=== PATIENT | male | born 1945 | race Caucasian/White ===

== ENCOUNTER 2017-07-19 19:34 | Inpatient (IN) | payer MEDICARE, OTHER ==
[~2017-07-19] VITALS: Ht 182.9 cm; Wt 150.0 kg
[~2017-07-19 19:34] MED LIST: CLIN1CAP6 PO; DIOV160T8 PO; GLIM1TAB PO; METF-324 PO
[2017-07-19 19:35] VITALS: BP 190/86; PULSE 100; RESP 16; TEMP 102.9; O2SAT 97
[2017-07-19] MEDS ORDERED: METF-382 PO (20:02)
[2017-07-19] MEDS ORDERED: GLIM1TAB PO (20:02)
[2017-07-19] MEDS ORDERED: VALS160T6 PO (20:02)
--- NOTE | 2017-07-19 20:18 | PD ---
HPI Chief Complaint: Skin Problem Time Seen by Provider: 20:17 Travel History International Travel<30 days: No Contact w/Intl Traveler<30days: No Traveled to known affect area: No History of Present Illness HPI 71-year-old male came to the emergency room with history of right leg redness after he noticed that he was cold and shaking all night last night. Patient says that he has had this in the past and was diagnosed with cellulitis. He is a diabetic. His right leg is swollen and red and warm. There is no severe pain in the leg. No history of cough or vomiting or diarrhea. Patient had a temperature of 102.5 in triage. He is currently awake and answering questions appropriately. He is here with his . He says his blood sugar has been running in 150s lately. He did not take anything for the fever at home. [facility] Past Medical History Narrative Medical List of his past medical, surgical, social and family history is reviewed from the nursing note. Arthritis: Yes (BILAT KNEES AND HANDS and feet) Asthma: No Autoimmune Disease: No Heart Rhythm Problems: No Cancer: No Cardiovascular Problems: Yes High Cholesterol: Yes Chest Pain: No Congestive Heart Failure: No COPD: No Cerebrovascular Accident: Yes Diabetes: Yes Patient Takes Glucophage: Yes Diminished Hearing: No Endocrine: No Genitourinary: Yes Headaches: Yes Hypertension: Yes (HTN) Immune Disorder: No Implanted Vascular Access Dvce: No Kidney Stones: Yes (STONES 2013) Musculoskeletal: Yes Neurologic: Yes Psychiatric: No Reproductive: No Respiratory: Yes Immunizations Current: Yes Migraines: No Seizures: No Sleep Apnea: Yes (CPAP/bipap) Thyroid Disease: No Tetanus Vaccination: > 5 Years Influenza Vaccination: No Social History Alcohol Use: No (occ) Tobacco Use: No Substance Use: No Allergies-Medications (Allergen,Severity, Reaction): Coded Allergies: morphine (Unverified Allergy, Mild, 01/20/17) Comments List of his allergies reviewed from the nursing note. Reported Meds & Prescriptions Reported Meds & Active Scripts Active Reported Metformin ER (Metformin HCl) 1,000 Mg Trent 1,000 Mg PO BID With evening meal Glimepiride 1 Mg Tab 1 Mg PO DAILYAC Take with breakfast or first main meal Narrative Medication List of his home medications reviewed from the nursing note. Review of Systems Except as stated in HPI: all other systems reviewed are Neg General / Constitutional: Positive: Fever, Chills Physical Exam Narrative GENERAL: Awake, alert, morbidly obese, moderate distress SKIN: Focused skin assessment warm/dry. Right leg lower third has redness on the anterior and medial aspect that is warm to touch. Patient does not have pain out of proportion in the area of the leg. The leg itself is swollen and tense. No crepitus. HEAD: Atraumatic. Normocephalic. EYES: Pupils equal and round. No scleral icterus. No injection or drainage. ENT: No nasal bleeding or discharge. Mucous membranes pink and moist. NECK: Trachea midline. No JVD. CARDIOVASCULAR: Regular rate and rhythm. No murmur appreciated. RESPIRATORY: No accessory muscle use. Clear to auscultation. Breath sounds equal bilaterally. GASTROINTESTINAL: Abdomen soft, non-tender, nondistended. Hepatic and splenic margins not palpable. MUSCULOSKELETAL: No obvious deformities. No clubbing. No cyanosis. No edema. Distal neurovascular is intact. NEUROLOGICAL: Awake and alert. No obvious cranial nerve deficits. Motor grossly within normal limits. Normal speech. PSYCHIATRIC: Appropriate mood and affect; insight and judgment normal. Data Data Last Documented VS Vital Signs Date Time Temp Pulse Resp B/P (MAP) Pulse Ox O2 Delivery O2 Flow Rate FiO2 07/19/17 19:55 (120) 07/19/17 19:35 102.9 100 16 97 Room Air Orders Orders Sepsis Workup Initiated (07/19/17 ) Complete Blood Count With Diff (07/19/17 20:20) Comprehensive Metabolic Panel (07/19/17 20:20) Prothrombin Time / Inr (Pt) (07/19/17 20:20) Lactic Acid Sepsis Protocol (07/19/17 20:20) Urinalysis - C+S If Indicated (07/19/17 20:20) Blood Culture (07/19/17 20:20) Chest, Single Ap (07/19/17 20:20) Blood Glucose (07/19/17 20:20) Ecg Monitoring (07/19/17 20:20) Iv Access Insert/Monitor (07/19/17 20:20) Oximetry (07/19/17 20:20) Oxygen Administration (07/19/17 20:20) Acetaminophen Supp (Tylenol Supp) (07/19/17 20:30) Sodium Chlor 0.9% 1000 Ml Inj (Ns 1000 M (07/19/17 20:30) Vancomycin Inj (Vancomycin Inj) (07/19/17 20:30) Us Leg Venous Doppler (07/19/17 ) Acetaminophen (Tylenol) (07/19/17 21:15) Piperacil-Tazo 4.5 Gm Premix (Zosyn 4.5 (07/19/17 21:45) Admit Order (Ed Use Only) (07/19/17 21:55) Labs Laboratory Tests Test 07/19/17 20:39 White Blood Count 21.8 TH/MM3 Red Blood Count 4.87 MIL/MM3 Hemoglobin 13.9 GM/DL Hematocrit 40.8 % Mean Corpuscular Volume 83.8 FL Mean Corpuscular Hemoglobin 28.5 PG Mean Corpuscular Hemoglobin Concent 34.0 % Red Cell Distribution Width 14.1 % Platelet Count 247 TH/MM3 Mean Platelet Volume 9.1 FL Neutrophils (%) (Auto) 90.5 % Lymphocytes (%) (Auto) 3.4 % Monocytes (%) (Auto) 5.6 % Eosinophils (%) (Auto) 0.1 % Basophils (%) (Auto) 0.4 % Neutrophils # (Auto) 19.7 TH/MM3 Lymphocytes # (Auto) 0.7 TH/MM3 Monocytes # (Auto) 1.2 TH/MM3 Eosinophils # (Auto) 0.0 TH/MM3 Basophils # (Auto) 0.1 TH/MM3 CBC Comment DIFF FINAL Differential Comment Prothrombin Time 10.7 SEC Prothromb Time International Ratio 1.1 RATIO Blood Urea Nitrogen 25 MG/DL Creatinine 1.49 MG/DL Random Glucose 135 MG/DL Total Protein 7.2 GM/DL Albumin 3.5 GM/DL Calcium Level 9.0 MG/DL Alkaline Phosphatase 81 U/L Aspartate Amino Transf (AST/SGOT) 22 U/L Alanine Aminotransferase (ALT/SGPT) 34 U/L Total Bilirubin 0.7 MG/DL Sodium Level 135 MEQ/L Potassium Level 4.1 MEQ/L Chloride Level 100 MEQ/L Carbon Dioxide Level 24.3 MEQ/L Anion Gap 11 MEQ/L Estimat Glomerular Filtration Rate 46 ML/MIN Lactic Acid Level 2.1 mmol/L MDM Medical Decision Making Medical Screen Exam Complete: Yes Emergency Medical Condition: Yes Medical Record Reviewed: Yes Differential Diagnosis Cellulitis, sepsis, DKA Narrative Course 9:49 PM patient was given Tylenol for his fever. Used x-ray and ultrasound of his leg was negative. There was no DVT. Blood test results of back and patient has leukocytosis and slightly elevated lactic acid. I've given him IV Zosyn and vancomycin to cover for sepsis. Patient needs to come in. Critical Care Narrative Aggregate critical care time was 30 minutes. Time to perform other separately billable procedures was not included in the critical care time. My time did not include minutes spent treating any other patients simultaneously or on activities that did not directly contribute to the patient's treatment. The services I provided to this patient were to treat and/or prevent clinically significant deterioration that could result in: Sepsis, sepsis protocol I provided critical care services requiring my management, as noted below: Chart data review, documentation time, medication orders and management, vital sign assessments/reviewing monitor data, ordering and reviewing lab tests, ordering and interpreting/reviewing x-rays and diagnostic studies, care of the patient and discussion of the patient with the admitting physicians. Procedures EKG Prior to Arrival: No Sepsis Criteria SIRS Criteria (2 or more): Temp > 100.9 or < 96.8, Heart rate over 90, WBC > 01872, < 4000 or > 10% bands Sepsis Criteria (SIRS+source): Infect source susp/known Severe Sepsis (+one): Lactate >2 Diagnosis Primary Impression: Sepsis Qualified Codes: A41.9 - Sepsis, unspecified organism Additional Impressions: Cellulitis of right lower leg Renal insufficiency Admitting Information Admitting Physician Requests: Admit Scripts Amoxicillin-Clavulanate (Augmentin) 875-125 Mg Tab 1 TAB PO BID for Infection for 10 Days, #20 TAB 0 Refills Prov: Remy Huff MD 07/22/17 Sulfamethoxazole-Trimethoprim (Bactrim DS) 800-160 Mg Tab 1 TAB PO BID for Infection, #20 TAB 0 Refills Prov: Remy Huff MD 07/22/17 Hydrochlorothiazide (Hydrochlorothiazide) 25 Mg Tab 25 MG PO DAILY for water pill, #30 TAB 0 Refills Prov: Remy Huff MD 07/22/17 Alfredito Navarro MD Jul 19, 2017 20:18
[2017-07-19] MEDS ORDERED: ACETAMINOPHEN 650 MG SUPP RECTAL ONE (20:30)
[2017-07-19] MEDS ORDERED: SODIUM CHLOR 0.9% 1000 ML INJ 1,000 ML IV ONE (20:30)
[2017-07-19] MEDS ORDERED: VANCOMYCIN INJ 1,000 MG in SODIUM CHLOR 0.9% 250 ML INJ 250 ML IV ONE (20:30)
--- NOTE | 2017-07-19 20:54 | RADRPT ---
EXAM DATE/TIME: 07/19/2017 20:36 [facility] COMPARISON: CHEST SINGLE AP, February 11, 2016, 19:39. INDICATIONS : Fever MEDICAL HISTORY : Diabetes mellitus type II. SURGICAL HISTORY : None. ENCOUNTER: Initial ACUITY: 1 day PAIN SCORE: 0/10 LOCATION: chest FINDINGS: A single view of the chest demonstrates the lungs to be symmetrically aerated without evidence of mas s, infiltrate or effusion. The cardiomediastinal contours are unremarkable. Osseous structures are intact. CONCLUSION: The lungs are clear. Kendell Tovar MD on July 19, 2017 at 20:52 Board Certified Radiologist. This report was verified electronically.
--- NOTE | 2017-07-19 21:11 | RADRPT ---
EXAM DATE/TIME: 07/19/2017 20:43 [facility] COMPARISON: No previous studies available for comparison. INDICATIONS : Right leg swelling. MEDICAL HISTORY : Hypertension. Stroke. Hypercholesterolemia. Emphysema. Sleep apnea. Kidney stones. Arthritis. Diab etes. SURGICAL HISTORY : Cataracts and lens replaced. Vasectomy. ENCOUNTER: Initial ACUITY: 3 days PAIN SCORE: 4/10 LOCATION: Right leg. TECHNIQUE: Venous ultrasound of the leg was performed from the inguinal ligament to the proximal calf. Real-rick e, color Doppler and spectral tracing, compression and augmentation techniques were used. FINDINGS: There is normal compressibility of the deep venous system from the inguinal region to the proximal ca lf. No echogenic clot is seen in the lumen of the common femoral, femoral, popliteal, and posterior tibial veins. There is a normal response of the venous system to proximal and distal augmentation an d respiration. CONCLUSION: Negative for deep venous thrombosis. Kendell Tovar MD on July 19, 2017 at 21:08 Board Certified Radiologist. This report was verified electronically.
[2017-07-19] MEDS ORDERED: ACETAMINOPHEN 325 MG TAB PO ONE (21:15)
[2017-07-19 21:21] LABS: AUTOMATED NEUTROPHIL # 19.7 TH/MM3 (1.8-7.7); BASOPHIL # 0.1 TH/MM3 (0-0.2); BASOPHIL % 0.4 % (0.0-2.0); EOSINOPHIL % 0.1 % (0.0-4.0); HEMATOCRIT 40.8 % (39.0-51.0); HEMOGLOBIN 13.9 GM/DL (13.0-17.0); LYMPH % 3.4 % (9.0-44.0); LYMPHOCYTE # 0.7 TH/MM3 (1.0-4.8); MEAN CELL VOLUME 83.8 FL (80.0-100.0); MEAN CORPUSCULAR HEMOGLOBIN 28.5 PG (27.0-34.0); MEAN PLATELET VOLUME 9.1 FL (7.0-11.0); MONO % 5.6 % (0.0-8.0); MONOCYTE # 1.2 TH/MM3 (0-0.9); NEUT % 90.5 % (16.0-70.0); PLATELET COUNT 247 TH/MM3 (150-450); RED BLOOD COUNT 4.87 MIL/MM3 (4.50-5.90); RED CELL DISTRIBUTION WIDTH 14.1 % (11.6-17.2); WHITE BLOOD COUNT 21.8 TH/MM3 (4.0-11.0)
[2017-07-19 21:29] LABS: LACTIC ACID SEPSIS PROTOCOL 2.1 mmol/L (0.4-2.0)
[2017-07-19 21:31] LABS: INTERNATIONAL NORMALIZED RATIO 1.1 RATIO; PROTHROMBIN TIME - PATIENT 10.7 SEC (9.8-11.6)
[2017-07-19 21:38] LABS: ALBUMIN 3.5 GM/DL (3.4-5.0); AST (GOT) 22 U/L (15-37); BICARBONATE 24.3 MEQ/L (21.0-32.0); BLOOD UREA NITROGEN 25 MG/DL (7-18); CHLORIDE 100 MEQ/L (98-107); CREATININE 1.49 MG/DL (0.60-1.30); GLOMERULAR FILTRATION RATE 46 ML/MIN (>89); GLUCOSE,RANDOM 135 MG/DL (74-106); SODIUM (NA) 135 MEQ/L (136-145)
[2017-07-19 21:41] LABS: ALKALINE PHOSPHATASE 81 U/L (45-117); ALT (GPT) 34 U/L (12-78); TOTAL BILIRUBIN ADULT 0.7 MG/DL (0.2-1.0); TOTAL PROTEIN 7.2 GM/DL (6.4-8.2)
[2017-07-19] MEDS ORDERED: PIPERACIL-TAZO 4.5 GM PREMIX 100 ML IV ONE (21:45)
[2017-07-19] MEDS ORDERED: SODIUM CHLOR 0.9% 1000 ML INJ 1,000 ML IV SCH (22:09)
--- NOTE | 2017-07-19 22:11 | HHI.HP ---
HPI [facility] Primary Care Physician Unknown Admission Diagnosis abscess, cellulitis, renal insufficiency Diagnoses: (1) Sepsis Diagnosis: Principal (2) Cellulitis of right lower leg Diagnosis: Principal (3) Renal insufficiency Diagnosis: Principal (4) DM (diabetes mellitus) Diagnosis: Principal Travel History International Travel<30 Days: No Contact w/Intl Traveler <30 Da: No Traveled to Known Affected Are: No History of Present Illness This is a 71-year-old male with PMH of HTN, Hyperlipidemia and DM that the ER with complaints of right leg redness and pain in addition to subjective fevers/ chills. States symptoms started acutely this morning. Noted acute onset of redness along right leg. States he has chronic "toe fungus" on right great toe and "picked at it" the other day. No recent injury/trauma. Pain is pressure like, constant, 7/10, non-radiating. Reports h/o similar presentation in the past. On arrival, BP 190/86, HR 100, O2 sat 97% on RA, Temp 102.9. WBC 21.8. Creatinine 1.49, previously 1.56 on 02/12/16. Lactic Acid 2.1. INR 1.1. UA negative. CXR with no acute findings. LE Doppler negative for DVT. S/p Blood Cultures, Vanc/Zosyn in ER. Review of Systems Except as stated in HPI: all other systems reviewed are Neg ROS: 14 point review of systems otherwise negative. Past Family Social History Past Medical History PMH: HTN, Hyperlipidemia and DM Past Surgical History PAST SURGICAL HISTORY: Cataract Surgery Allergies: Coded Allergies: morphine (Unverified Allergy, Mild, 01/20/17) Family History PAST FAMILY HISTORY: Reviewed, positive for DM. Social History PAST SOCIAL HISTORY: Negative for alcohol, tobacco or drugs. Physical Exam Vital Signs Vital Signs Date Time Temp Pulse Resp B/P (MAP) Pulse Ox O2 Delivery O2 Flow Rate FiO2 07/19/17 19:55 (120) 07/19/17 19:35 102.9 100 16 190/86 (120) 97 Room Air Physical Exam PE: GENERAL: Extremely pleasant elderly white male in no acute distress. at bedside. HEENT: PERRLA, EOMI. No scleral icterus or conjunctival pallor. No lid lag or facial droop. CARDIOVASCULAR: Regular rate and rhythm. No obvious murmurs to auscultation. No chest tenderness to palpation. RESPIRATORY: No obvious rhonchi or wheezing. Clear to auscultation. Breath sounds equal bilaterally. GASTROINTESTINAL: Abdomen soft, non-tender, nondistended. BS normal. MUSCULOSKELETAL: Extremities without clubbing, cyanosis, or edema. No obvious deformities. RLE w/ erythema/warmth. Right great toe w/ onychomycosis, mild surrounding erythema. NEUROLOGICAL: Awake, alert and oriented x4. No focal neurologic deficits. Moving both upper and lower extremities spontaneously. Laboratory Laboratory Tests Test 07/19/17 20:39 White Blood Count 21.8 Red Blood Count 4.87 Hemoglobin 13.9 Hematocrit 40.8 Mean Corpuscular Volume 83.8 Mean Corpuscular Hemoglobin 28.5 Mean Corpuscular Hemoglobin Concent 34.0 Red Cell Distribution Width 14.1 Platelet Count 247 Mean Platelet Volume 9.1 Neutrophils (%) (Auto) 90.5 Lymphocytes (%) (Auto) 3.4 Monocytes (%) (Auto) 5.6 Eosinophils (%) (Auto) 0.1 Basophils (%) (Auto) 0.4 Neutrophils # (Auto) 19.7 Lymphocytes # (Auto) 0.7 Monocytes # (Auto) 1.2 Eosinophils # (Auto) 0.0 Basophils # (Auto) 0.1 CBC Comment DIFF FINAL Differential Comment Prothrombin Time 10.7 Prothromb Time International Ratio 1.1 Blood Urea Nitrogen 25 Creatinine 1.49 Random Glucose 135 Total Protein 7.2 Albumin 3.5 Calcium Level 9.0 Alkaline Phosphatase 81 Aspartate Amino Transf (AST/SGOT) 22 Alanine Aminotransferase (ALT/SGPT) 34 Total Bilirubin 0.7 Sodium Level 135 Potassium Level 4.1 Chloride Level 100 Carbon Dioxide Level 24.3 Anion Gap 11 Estimat Glomerular Filtration Rate 46 Lactic Acid Level 2.1 Date/Time Source Procedure Growth Status 07/19/17 20:40 Blood Peripheral Aerobic Blood Culture Pending Received 07/19/17 20:40 Blood Peripheral Anaerobic Blood Culture Pending Received Result Diagram: 07/19/17203807/19/172038 Caprini VTE Risk Assessment Caprini VTE Risk Assessment: No/Low Risk (score <= 1) Caprini Risk Assessment Model Point Value = 1 Point Value = 2 Point Value = 3 Point Value = 5 Age 41-60 Minor surgery BMI > 25 kg/m2 Swollen legs Varicose veins or History of unexplained or recurrent spontaneous Oral contraceptives or hormone replacement Sepsis (< 1 month) Serious lung disease, including pneumonia (< 1 month) Abnormal pulmonary function Acute myocardial infarction Congestive heart failure (< 1 month) History of inflammatory bowel disease Medical patient at bed rest Age 61-74 Arthroscopic surgery Major open surgery (> 45 min) Laparoscopic surgery (> 45 min) Malignancy Confined to bed (> 72 hours) Immobilizing plaster cast Central venous access Age >= 75 History of VTE Family history of VTE Factor V Leiden Prothrombin [id number] Lupus anticoagulant Anticardiolipin antibodies Elevated serum homocysteine Heparin-induced thrombocytopenia Other congenital or acquired thrombophilia Stroke (< 1 month) Elective arthroplasty Hip, pelvis, or leg fracture Acute spinal cord injury (< 1 month) Prophylaxis Regimen Total Risk Factor Score Risk Level Prophylaxis Regimen 0-1 Low Early ambulation 2 Moderate Order ONE of the following: *Sequential Compression Device (SCD) *Heparin 5000 units SQ BID 3-4 Higher Order ONE of the following medications: *Heparin 5000 units SQ TID *Enoxaparin/Lovenox 40 mg SQ daily (WT < 150 kg, CrCl > 30 mL/min) *Enoxaparin/Lovenox 30 mg SQ daily (WT < 150 kg, CrCl > 10-29 mL/min) *Enoxaparin/Lovenox 30 mg SQ BID (WT < 150 kg, CrCl > 30 mL/min) AND/OR *Sequential Compression Device (SCD) 5 or more Highest Order ONE of the following medications: *Heparin 5000 units SQ TID (Preferred with Epidurals) *Enoxaparin/Lovenox 40 mg SQ daily (WT < 150 kg, CrCl > 30 mL/min) *Enoxaparin/Lovenox 30 mg SQ daily (WT < 150 kg, CrCl > 10-29 mL/min) *Enoxaparin/Lovenox 30 mg SQ BID (WT < 150 kg, CrCl > 30 mL/min) AND *Sequential Compression Device (SCD) Assessment and Plan Problem List: (1) Sepsis ICD Code: A41.9 - Sepsis Status: Acute (2) Cellulitis of right lower leg ICD Code: L03.115 - Cellulitis of right lower leg Status: Acute (3) Renal insufficiency ICD Code: N28.9 - Disorder of kidney and ureter, unspecified Status: Acute (4) DM (diabetes mellitus) ICD Code: E11.9 - DM (diabetes mellitus) Status: Acute Assessment and Plan A/P: 1. Sepsis: Temp 102.9, HR 100, WBC 21.8, Source-RLE Cellulitis. S/p Blood Cultures, Vanc/Zosyn. Continue w/ IV Abx, follow up cultures. Lactic Acid 2.1 , IVF, repeat Lactic Acid for trend. 2. RLE Cellulitis: Acute onset or RLE erythema/edema. Continue w/ IV Abx, follow up cultures. Wound Consult for further eval/tx 3. Renal Insufficiency: Creatinine 1.49, producing 1.56 on 02/12/16. UA reviewed and negative. IVF for hydration, repeat labs in a.m. 4. DM: Hold Metformin in light of acute Sepsis and renal insufficiency. Sliding scale with Accu-Cheks. 5. DVT Prophylaxis: Heparin sq 6. family worker DC planning as needed. 7. Case discussed at length with ER physician, lab/records/imaging reviewed by me. Physician Certification 2 Midnight Certification Type: Admission for Inpatient Services Order for Inpatient Services The services are ordered in accordance with Medicare regulations or non- Medicare payer requirements, as applicable. In the case of services not specified as inpatient-only, they are appropriately provided as inpatient services in accordance with the 2-midnight benchmark. Estimated LOS (days): 2 days is the estimated time the patient will need to remain in the hospital, assuming treatment plan goals are met and no additional complications. Post-Hospital Plan: Not yet determined Problem Qualifiers (1) Sepsis: Qualified Codes: A41.9 - Sepsis, unspecified organism Nancy Hodge MD Jul 19, 2017 22:11
[2017-07-19] MEDS ORDERED: GLUCAGON 1 MG/ML VIAL OTHER PRN (22:15)
[2017-07-19] MEDS ORDERED: ACETAMINOPHEN/HYDROcodone 325 MG/5 MG TAB PO PRN (22:15)
[2017-07-19] MEDS ORDERED: ACETAMINOPHEN 325 MG TAB PO PRN (22:15)
[2017-07-19] MEDS ORDERED: SODIUM CHLORIDE 0.9% FLUSH 10 ML FLUSH IV FLUSH PRN (22:15)
[2017-07-19] MEDS ORDERED: DEXTROSE 50% IN WATER 50 ML VIAL(D50) IV PUSH PRN (22:15)
[2017-07-19] MEDS ORDERED: BISACODYL 10 MG SUPP RECTAL PRN (22:15)
[2017-07-19] MEDS ORDERED: LACTULOSE SYRUP 20 GM/30 ML CUP PO PRN (22:15)
[2017-07-19] MEDS ORDERED: SENNOSIDES 8.6 MG TAB PO PRN (22:15)
[2017-07-19] MEDS ORDERED: ONDANSETRON HCL 4 MG/2 ML VIAL IVP PRN (22:15)
[2017-07-19] MEDS ORDERED: MAGNESIUM HYDROXIDE SUSP 30 ML CUP PO PRN (22:15)
[2017-07-19] MEDS ORDERED: Vancomycin Consult Pharmacy 1 EA OTHER SCH (22:15)
[2017-07-19] MEDS ORDERED: HYDROmorphone HCL PF 2 MG/ML VIAL IV PRN (22:30)
[2017-07-19 22:39] VITALS: BP 143/64; PULSE 84; RESP 18; TEMP 99.4; O2SAT 98
[2017-07-19 22:40] VITALS: O2SAT 97
[2017-07-19 22:59] LABS: BILIRUBIN, URINE NEG (NEG); BLOOD, URINE NEG (NEG); GLUCOSE,URINE NEG (NEG); KETONE, URINE NEG (NEG); MUCUS URINE FEW /lpf (OCC); NITRITE,URINE NEG (NEG); PH, URINE 5.5 (5.0-8.5); URINE COLOR YELLOW (YELLW/STRAW); URINE LEUKOCYTE ESTERASE TRACE (NEG)
[2017-07-19] MEDS ORDERED: VANCOMYCIN INJ 1,500 MG in SODIUM CHLORID 0.9% 500 ML INJ 500 ML IV ONE (23:00)
[2017-07-20] VITALS (8 sets, daily range): BP systolic 127–145; BP diastolic 60–70; PULSE 74–84; RESP 17–18; TEMP 96.8–99.3; O2SAT 96–98
[2017-07-20 04:59] LABS: AUTOMATED NEUTROPHIL # 12.7 TH/MM3 (1.8-7.7); BASOPHIL % 0.3 % (0.0-2.0); EOSINOPHIL # 0.1 TH/MM3 (0-0.4); EOSINOPHIL % 0.4 % (0.0-4.0); HEMATOCRIT 37.1 % (39.0-51.0); HEMOGLOBIN 12.8 GM/DL (13.0-17.0); LYMPH % 8.8 % (9.0-44.0); LYMPHOCYTE # 1.3 TH/MM3 (1.0-4.8); MEAN CELL VOLUME 85.6 FL (80.0-100.0); MEAN CORPUSCULAR HEMOGLOBIN 29.5 PG (27.0-34.0); MEAN CORPUSCULAR HGB CONC 34.5 % (32.0-36.0); MEAN PLATELET VOLUME 8.6 FL (7.0-11.0); MONOCYTE # 1.1 TH/MM3 (0-0.9); NEUT % 83.5 % (16.0-70.0); PLATELET COUNT 198 TH/MM3 (150-450); RED BLOOD COUNT 4.33 MIL/MM3 (4.50-5.90); RED CELL DISTRIBUTION WIDTH 14.1 % (11.6-17.2); WHITE BLOOD COUNT 15.2 TH/MM3 (4.0-11.0)
[2017-07-20 05:19] LABS: ALBUMIN 3.1 GM/DL (3.4-5.0); AST (GOT) 25 U/L (15-37); BICARBONATE 24.7 MEQ/L (21.0-32.0); BLOOD UREA NITROGEN 21 MG/DL (7-18); CALCIUM 8.4 MG/DL (8.5-10.1); CHLORIDE 103 MEQ/L (98-107); CREATININE 1.41 MG/DL (0.60-1.30); GLOMERULAR FILTRATION RATE 50 ML/MIN (>89); GLUCOSE,RANDOM 160 MG/DL (74-106); SODIUM (NA) 136 MEQ/L (136-145)
[2017-07-20 05:20] LABS: ALT (GPT) 31 U/L (12-78)
[2017-07-20 05:23] LABS: ALKALINE PHOSPHATASE 64 U/L (45-117); TOTAL BILIRUBIN ADULT 0.8 MG/DL (0.2-1.0); TOTAL PROTEIN 6.7 GM/DL (6.4-8.2)
[2017-07-20] MEDS: SODIUM CHLORIDE 0.9% FLUSH 10 ML FLUSH IV FLUSH SCH ×2 (08:27→22:01)
[2017-07-20] MEDS ORDERED: CEFEPIME INJ 1,000 MG in SODIUM CHLORIDE 0.9% INJ 100 ML IV SCH (09:00)
[2017-07-20] MEDS: DOCUSATE SODIUM 50 MG/SENNA 8.6 MG TAB PO SCH ×2 (09:00→22:02)
[2017-07-20] MEDS: HEPARIN SODIUM - SQ 10,000 UNITS/ML VIAL SQ SCH ×2 (09:21→22:02)
[2017-07-20] MEDS: INSULIN ASPART SUPPLEMENTAL SCALE SQ SCH ×4 (09:21→21:00)
[2017-07-20] MEDS: GLIMEPIRIDE 1 MG TAB PO SCH (09:21)
--- NOTE | 2017-07-20 09:21 | HHI.PR ---
Subjective Remarks Patient says that right lower extremity erythema appears to be improving somewhat. Denies any chest pain shortness of breath. Denies any nausea or vomiting. He reports chronic bilateral lower extremity edema. Denies any heart problems. Objective Vital Signs Date Time Temp Pulse Resp B/P (MAP) Pulse Ox O2 Delivery O2 Flow Rate FiO2 07/20/17 08:00 96.8 74 17 142/69 (93) 98 07/20/17 04:54 98.9 74 18 145/70 (95) 97 07/20/17 00:39 99.3 75 18 127/60 (82) 97 07/19/17 23:21 07/19/17 22:46 83 18 07/19/17 22:40 97 Room Air 07/19/17 22:40 97 Room Air 07/19/17 22:39 99.4 84 18 143/64 (90) 98 07/19/17 19:55 (120) 07/19/17 19:35 102.9 100 16 190/86 (120) 97 Room Air I/O 07/19/17 07/19/17 07/19/17 07/20/17 07/20/17 07/20/17 07:00 15:00 23:00 07:00 15:00 23:00 Intake Total 350 ml 740 ml Balance 350 ml 740 ml Intake Oral 740 ml IV Total 350 ml # Voids 3 # Bowel Movements 1 Result Diagram: 07/20/1743907/20/17439 Objective Remarks GENERAL: Patient sitting up in bed. Appears comfortable. SKIN: Warm and dry. HEAD: Normocephalic. EYES: No scleral icterus. No injection or drainage. NECK: Supple, trachea midline. No JVD. CARDIOVASCULAR: Regular rate and rhythm without murmurs, gallops, or rubs. RESPIRATORY: Breath sounds equal bilaterally. No accessory muscle use. GASTROINTESTINAL: Abdomen soft, non-tender, nondistended. MUSCULOSKELETAL: No cyanosis. 2+ bilateral lower extremity edema. Right worse than left. Erythema of the right ankle extending from level of socks to 10 cm distal of right knee. No broken skin, no blistering, no loculations BACK: Nontender without obvious deformity. No CVA tenderness. A/P Assessment and Plan //Sepsis: Temp 102.9, HR 100, WBC 21.8, Source-RLE Cellulitis. S/p Blood Cultures, Vanc/Zosyn. Continue w/ IV Abx, follow up cultures. Lactic Acid 2.1 , IVF, repeat Lactic Acid for trend. = Appears to be improving. Still with right lower extremity erythema slightly better. Leukocytosis still 15.2. Cultures still pending. // RLE Cellulitis: //Venous stasis cellulitis right lower extremity - acute onset or RLE erythema/edema. Continue w/ IV Abx, follow up cultures. Wound Consult for further eval/tx = This is venous stasis cellulitis. Will discontinue IV fluids. Start moderate fluid restrictions check BNP. Start Baltazar wraps bilaterally. // Renal Insufficiency: Creatinine 1.49, producing 1.56 on 02/12/16. UA reviewed and negative. IVF for hydration, repeat labs in a.m. = Creatinine appears at baseline. Discontinue IV fluids. // DM: Hold Metformin in light of acute Sepsis and renal insufficiency. Sliding scale with Accu-Cheks. = Glucose controlled. Continue to monitor. // DVT Prophylaxis: Heparin sq Discharge Planning Pending improvement. Likely discharge home tomorrow with Baltazar wraps. Remy Huff MD Jul 20, 2017 09:21
[2017-07-20] MEDS ORDERED: FUROSEMIDE 20 MG/2 ML VIAL IV PUSH ONE (10:00)
[2017-07-20] MEDS: cefTRIAXone INJ 1,000 MG in SODIUM CHLORIDE 0.9% INJ 100 ML IV SCH ×2 (10:26→22:01)
[2017-07-20] MEDS ORDERED: ACETAMINOPHEN/HYDROcodone 325 MG/10 MG TAB PO PRN (22:30)
[2017-07-20] MEDS ORDERED: HYDROmorphone HCL PF 2 MG/ML VIAL IV PRN (22:45)
[2017-07-20] MEDS: VANCOMYCIN INJ 2,250 MG in SODIUM CHLORID 0.9% 500 ML INJ 500 ML IV SCH (22:56)
[2017-07-21] VITALS (9 sets, daily range): BP systolic 120–198; BP diastolic 70–91; PULSE 62–87; RESP 16–18; TEMP 97.8–98.5; O2SAT 96–98
[2017-07-21] MEDS ORDERED: cloNIDine HCL 0.1 MG TAB PO ONE (00:30)
[2017-07-21] MEDS: DOCUSATE SODIUM 50 MG/SENNA 8.6 MG TAB PO SCH ×2 (08:51→21:44)
[2017-07-21] MEDS: GLIMEPIRIDE 1 MG TAB PO SCH (08:51)
[2017-07-21] MEDS: INSULIN ASPART SUPPLEMENTAL SCALE SQ SCH ×4 (08:51→21:45)
[2017-07-21] MEDS: SODIUM CHLORIDE 0.9% FLUSH 10 ML FLUSH IV FLUSH SCH ×2 (08:51→21:00)
[2017-07-21] MEDS: HEPARIN SODIUM - SQ 10,000 UNITS/ML VIAL SQ SCH ×2 (08:52→21:44)
[2017-07-21] MEDS: cefTRIAXone INJ 1,000 MG in SODIUM CHLORIDE 0.9% INJ 100 ML IV SCH (10:16)
--- NOTE | 2017-07-21 15:04 | HHI.PR ---
Subjective Remarks Patient seen this morning around 8:30 AM. States that he has some moderate pain in right calf. Denies any chest pain or shortness of breath. Objective Vital Signs Date Time Temp Pulse Resp B/P (MAP) Pulse Ox O2 Delivery O2 Flow Rate FiO2 07/21/17 13:38 97.8 64 18 138/71 (93) 98 07/21/17 11:23 63 07/21/17 08:35 98.0 66 16 120/70 (87) 97 07/21/17 08:25 66 07/21/17 05:08 98.0 87 18 198/91 (126) 97 07/21/17 00:17 98.0 77 18 176/84 (114) 96 07/20/17 20:01 84 07/20/17 16:00 97.3 80 17 128/64 (85) 96 07/20/17 15:59 79 I/O 07/20/17 07/20/17 07/20/17 07/21/17 07/21/17 07/21/17 07:00 15:00 23:00 07:00 15:00 23:00 Intake Total 350 ml 940 ml 400 ml Balance 350 ml 940 ml 400 ml Intake Oral 740 ml 300 ml IV Total 350 ml 200 ml 100 ml # Voids 3 2 # Bowel Movements 1 Result Diagram: 07/20/1743907/20/17439 Objective Remarks GENERAL: Patient sitting up in bed. Appears comfortable. SKIN: Warm and dry. HEAD: Normocephalic. EYES: No scleral icterus. No injection or drainage. NECK: Supple, trachea midline. No JVD. CARDIOVASCULAR: Regular rate and rhythm without murmurs, gallops, or rubs. RESPIRATORY: Breath sounds equal bilaterally. No accessory muscle use. GASTROINTESTINAL: Abdomen soft, non-tender, nondistended. MUSCULOSKELETAL: No cyanosis. 2+ bilateral lower extremity edema. Right worse than left. Slightly improved today. Erythema of the right ankle extending from level of socks to 10 cm distal of right knee, improved today. No broken skin, no blistering, no loculations BACK: Nontender without obvious deformity. No CVA tenderness. A/P Assessment and Plan //Sepsis: Temp 102.9, HR 100, WBC 21.8, Source-RLE Cellulitis. S/p Blood Cultures, Vanc/Zosyn. Continue w/ IV Abx, follow up cultures. Lactic Acid 2.1 , IVF, repeat Lactic Acid for trend. = Appears to be improving. Still with right lower extremity erythema slightly better. Leukocytosis still 15.2. Cultures still pending. = 07/21. Right lower extremity erythema appears to be improving, however still present. Continue antibiotics. We will switch ceftriaxone to cefepime for antipseudomonal coverage. // RLE Cellulitis: //Venous stasis cellulitis right lower extremity - acute onset or RLE erythema/edema. Continue w/ IV Abx, follow up cultures. Wound Consult for further eval/tx = This is venous stasis cellulitis. Will discontinue IV fluids. Start moderate fluid restrictions check BNP. Start Baltazar wraps bilaterally. = BNP within normal limits. Likely venous stasis cellulitis. Continue elevation and Baltazar wraps. // Renal Insufficiency: Creatinine 1.49, producing 1.56 on 02/12/16. UA reviewed and negative. IVF for hydration, repeat labs in a.m. = Creatinine appears at baseline. Discontinue IV fluids. = Continue to monitor. Check labs tomorrow. // DM: Hold Metformin in light of acute Sepsis and renal insufficiency. Sliding scale with Accu-Cheks. = Glucose continues controlled. Continue to monitor. // DVT Prophylaxis: Heparin sq Discharge Planning Had hoped for more drastic improvement with treatment for venous stasis cellulitis. Pending further improvement. Continue IV antibiotics for now. Likely discharge home tomorrow. Remy Huff MD Jul 21, 2017 15:04
[2017-07-21] MEDS: CEFEPIME INJ 2,000 MG in SODIUM CHLORIDE 0.9% INJ 100 ML IV SCH (15:17)
[2017-07-21] MEDS: VANCOMYCIN INJ 2,250 MG in SODIUM CHLORID 0.9% 500 ML INJ 500 ML IV SCH (22:26)
[2017-07-22] MEDS: CEFEPIME INJ 2,000 MG in SODIUM CHLORIDE 0.9% INJ 100 ML IV SCH (04:29)
[2017-07-22 04:59] VITALS: BP 159/76; PULSE 61; RESP 18; TEMP 98; O2SAT 96
[2017-07-22 06:59] VITALS: PULSE 64
[2017-07-22 07:27] LABS: AUTOMATED NEUTROPHIL # 5.6 TH/MM3 (1.8-7.7); BASOPHIL # 0.1 TH/MM3 (0-0.2); BASOPHIL % 0.6 % (0.0-2.0); EOSINOPHIL # 0.4 TH/MM3 (0-0.4); EOSINOPHIL % 5.1 % (0.0-4.0); HEMATOCRIT 38.3 % (39.0-51.0); HEMOGLOBIN 13.4 GM/DL (13.0-17.0); LYMPHOCYTE # 1.9 TH/MM3 (1.0-4.8); MEAN CORPUSCULAR HEMOGLOBIN 29.9 PG (27.0-34.0); MEAN CORPUSCULAR HGB CONC 35.1 % (32.0-36.0); MEAN PLATELET VOLUME 8.8 FL (7.0-11.0); MONO % 9.7 % (0.0-8.0); MONOCYTE # 0.9 TH/MM3 (0-0.9); NEUT % 63.6 % (16.0-70.0); PLATELET COUNT 222 TH/MM3 (150-450); RED CELL DISTRIBUTION WIDTH 14.2 % (11.6-17.2); WHITE BLOOD COUNT 8.8 TH/MM3 (4.0-11.0)
[2017-07-22 07:49] LABS: ALBUMIN 3.4 GM/DL (3.4-5.0); BICARBONATE 25.3 MEQ/L (21.0-32.0); CALCIUM 8.8 MG/DL (8.5-10.1); CREATININE 1.24 MG/DL (0.60-1.30); MAGNESIUM 2.2 MG/DL (1.5-2.5)
[2017-07-22 07:50] LABS: PHOSPHORUS 3.4 MG/DL (2.5-4.9)
[2017-07-22] MEDS: INSULIN ASPART SUPPLEMENTAL SCALE SQ SCH (08:00)
[2017-07-22 08:10] VITALS: BP 141/74; PULSE 65; RESP 18; TEMP 97.8; O2SAT 98
[2017-07-22] MEDS ORDERED: BACT800T5 PO (08:48)
[2017-07-22] MEDS ORDERED: AUGM875T3 PO (08:48)
[2017-07-22] MEDS ORDERED: HYDR25TA5 PO (08:48)
--- NOTE | 2017-07-22 08:57 | HHI.PR ---
Subjective Remarks Patient says he is feeling great. Denies any chest pain or shortness of breath. Reports pain in right leg has resolved. Like to go home. Objective Vital Signs Date Time Temp Pulse Resp B/P (MAP) Pulse Ox O2 Delivery O2 Flow Rate FiO2 07/22/17 08:10 97.8 65 18 141/74 (96) 98 07/22/17 06:59 64 07/22/17 05:29 18 07/22/17 04:59 98.0 61 18 159/76 (103) 96 07/21/17 23:29 98.5 62 18 159/76 (103) 97 07/21/17 19:45 98.0 77 18 162/78 (106) 97 07/21/17 15:48 63 07/21/17 13:38 97.8 64 18 138/71 (93) 98 07/21/17 11:23 63 I/O 07/21/17 07/21/17 07/21/17 07/22/17 07/22/17 07/22/17 07:00 15:00 23:00 07:00 15:00 23:00 Intake Total 400 ml 460 ml Balance 400 ml 460 ml Intake Oral 300 ml 360 ml IV Total 100 ml 100 ml # Voids 2 Result Diagram: 07/22/1759 07/22/17 0659 Objective Remarks GENERAL: Patient sitting up in bed. Appears comfortable. SKIN: Warm and dry. HEAD: Normocephalic. EYES: No scleral icterus. No injection or drainage. NECK: Supple, trachea midline. No JVD. CARDIOVASCULAR: Regular rate and rhythm without murmurs, gallops, or rubs. RESPIRATORY: Breath sounds equal bilaterally. No accessory muscle use. GASTROINTESTINAL: Abdomen soft, non-tender, nondistended. MUSCULOSKELETAL: No cyanosis. 1+ bilateral lower extremity edema. Right worse than left. Slightly improved today. Erythema of the right ankle extending from level of socks to 10 cm distal of right knee, improved again today. No broken skin, no blistering, no loculations. BACK: Nontender without obvious deformity. No CVA tenderness. A/P Assessment and Plan //Sepsis: Temp 102.9, HR 100, WBC 21.8, Source-RLE Cellulitis. S/p Blood Cultures, Vanc/Zosyn. Continue w/ IV Abx, follow up cultures. Lactic Acid 2.1 , IVF, repeat Lactic Acid for trend. = Appears to be improving. Still with right lower extremity erythema slightly better. Leukocytosis still 15.2. Cultures still pending. = 07/21. Right lower extremity erythema appears to be improving, however still present. Continue antibiotics. We will switch ceftriaxone to cefepime for antipseudomonal coverage. = 07/22. Erythema improving. Discharge home on Augmentin and Bactrim to complete treatment course. Follow-up with primary care. // RLE Cellulitis: //Venous stasis cellulitis right lower extremity - acute onset or RLE erythema/edema. Continue w/ IV Abx, follow up cultures. Wound Consult for further eval/tx = This is venous stasis cellulitis. Will discontinue IV fluids. Start moderate fluid restrictions check BNP. Start Baltazar wraps bilaterally. = BNP within normal limits. Likely venous stasis cellulitis. Continue elevation and Baltazar wraps. = 07/22. Erythema improving. Discharge home on Augmentin and Bactrim to complete treatment course. Follow-up with primary care. // Renal Insufficiency: Creatinine 1.49, producing 1.56 on 02/12/16. UA reviewed and negative. IVF for hydration, repeat labs in a.m. = Creatinine appears at baseline. Discontinue IV fluids. = Continue to monitor. Check labs tomorrow. // DM: Hold Metformin in light of acute Sepsis and renal insufficiency. Sliding scale with Accu-Cheks. = Glucose continues controlled. Continue to monitor. // DVT Prophylaxis: Heparin sq Discharge Planning Discharge home in good condition. Bactrim and Augmentin to complete treatment course. Remy Huff MD Jul 22, 2017 08:57
--- NOTE | 2017-07-22 09:04 | HHI.DS ---
Discharge Summary Admission Date Jul 19, 2017 at 21:56 Discharge Date: Jul 22, 2017 Admitting Diagnosis abscess, cellulitis, renal insufficiency (1) Sepsis ICD Code: A41.9 - Sepsis Status: Acute (2) Cellulitis of right lower leg ICD Code: L03.115 - Cellulitis of right lower leg Status: Acute (3) Renal insufficiency ICD Code: N28.9 - Disorder of kidney and ureter, unspecified Status: Acute (4) DM (diabetes mellitus) ICD Code: E11.9 - DM (diabetes mellitus) Status: Acute Procedures No invasive procedures Brief History - From Admission This is a 71-year-old male with PMH of HTN, Hyperlipidemia and DM that the ER with complaints of right leg redness and pain in addition to subjective fevers/ chills. States symptoms started acutely this morning. Noted acute onset of redness along right leg. States he has chronic "toe fungus" on right great toe and "picked at it" the other day. No recent injury/trauma. Pain is pressure like, constant, 7/10, non-radiating. Reports h/o similar presentation in the past. On arrival, BP 190/86, HR 100, O2 sat 97% on RA, Temp 102.9. WBC 21.8. Creatinine 1.49, previously 1.56 on 02/12/16. Lactic Acid 2.1. INR 1.1. UA negative. CXR with no acute findings. LE Doppler negative for DVT. S/p Blood Cultures, Vanc/Zosyn in ER. CBC/BMP: 07/22/17 0659 07/22/17 0659 Significant Findings Laboratory Tests Test 07/19/17 20:39 07/19/17 22:33 07/20/17 00:32 07/20/17 04:40 White Blood Count 21.8 TH/MM3 (4.0-11.0) 15.2 TH/MM3 (4.0-11.0) Neutrophils (%) (Auto) 90.5 % (16.0-70.0) 83.5 % (16.0-70.0) Lymphocytes (%) (Auto) 3.4 % (9.0-44.0) 8.8 % (9.0-44.0) Neutrophils # (Auto) 19.7 TH/MM3 (1.8-7.7) 12.7 TH/MM3 (1.8-7.7) Lymphocytes # (Auto) 0.7 TH/MM3 (1.0-4.8) Monocytes # (Auto) 1.2 TH/MM3 (0-0.9) 1.1 TH/MM3 (0-0.9) Blood Urea Nitrogen 25 MG/DL (7-18) 21 MG/DL (7-18) Creatinine 1.49 MG/DL (0.60-1.30) 1.41 MG/DL (0.60-1.30) Random Glucose 135 MG/DL (74-106) 160 MG/DL (74-106) Sodium Level 135 MEQ/L (136-145) Estimat Glomerular Filtration Rate 46 ML/MIN (>89) 50 ML/MIN (>89) Lactic Acid Level 2.1 mmol/L (0.4-2.0) Urine Leukocyte Esterase TRACE (NEG) Urine Mucus FEW /lpf (OCC) Red Blood Count 4.33 MIL/MM3 (4.50-5.90) Hemoglobin 12.8 GM/DL (13.0-17.0) Hematocrit 37.1 % (39.0-51.0) Albumin 3.1 GM/DL (3.4-5.0) Calcium Level 8.4 MG/DL (8.5-10.1) Test 07/20/17 04:41 07/20/17 09:23 07/21/17 22:14 07/22/17 06:59 Hematocrit 38.3 % (39.0-51.0) Monocytes (%) (Auto) 9.7 % (0.0-8.0) Eosinophils (%) (Auto) 5.1 % (0.0-4.0) Blood Urea Nitrogen 22 MG/DL (7-18) Random Glucose 144 MG/DL (74-106) Estimat Glomerular Filtration Rate 57 ML/MIN (>89) Imaging Last Impressions Chest X-Ray 07/19/172019 Signed Impressions: Service Date/Time: Wednesday, July 19, 2017 20:36 - CONCLUSION: The lungs are clear. Kendell Tovar MD Lower Extremity Ultrasound 07/19/17 0000 Signed Impressions: Service Date/Time: Wednesday, July 19, 2017 20:43 - CONCLUSION: Negative for deep venous thrombosis. Kendell Tovar MD Hospital Course Patient with leukocytosis of 21.8, fever 102.9, heart rate of 100 on admission, marketed right lower extremity cellulitis. Ultrasound negative for DVT. Cellulitis, white count, vitals improved with IV antibiotics, Baltazar wraps and elevation. Patient will be sent home on Bactrim and Augmentin to complete treatment course. Patient also presented with impaired renal function with creatinine 1.5. His ARB will be held. Will continue on hydrochlorothiazide at home. Follow with primary care as outpatient. Patient was found to have elevation in blood sugars early on during admission, however this improved. A1c is pending at the time of discharge. Follow with primary care. Continue home medications For problem-based summary from most recent progress note, please see below. //Sepsis: Temp 102.9, HR 100, WBC 21.8, Source-RLE Cellulitis. S/p Blood Cultures, Vanc/Zosyn. Continue w/ IV Abx, follow up cultures. Lactic Acid 2.1 , IVF, repeat Lactic Acid for trend. = Appears to be improving. Still with right lower extremity erythema slightly better. Leukocytosis still 15.2. Cultures still pending. = 07/21. Right lower extremity erythema appears to be improving, however still present. Continue antibiotics. We will switch ceftriaxone to cefepime for antipseudomonal coverage. = 07/22. Erythema improving. Discharge home on Augmentin and Bactrim to complete treatment course. Follow-up with primary care. // RLE Cellulitis: //Venous stasis cellulitis right lower extremity - acute onset or RLE erythema/edema. Continue w/ IV Abx, follow up cultures. Wound Consult for further eval/tx = This is venous stasis cellulitis. Will discontinue IV fluids. Start moderate fluid restrictions check BNP. Start Baltazar wraps bilaterally. = BNP within normal limits. Likely venous stasis cellulitis. Continue elevation and Baltazar wraps. = 07/22. Erythema improving. Discharge home on Augmentin and Bactrim to complete treatment course. Follow-up with primary care. // Renal Insufficiency: Creatinine 1.49, producing 1.56 on 02/12/16. UA reviewed and negative. IVF for hydration, repeat labs in a.m. = Creatinine appears at baseline. Discontinue IV fluids. = Continue to monitor. Check labs tomorrow. // DM: Hold Metformin in light of acute Sepsis and renal insufficiency. Sliding scale with Accu-Cheks. = Glucose continues controlled. Continue to monitor. // DVT Prophylaxis: Heparin sq Discharge Planning Discharge home in good condition. Bactrim and Augmentin to complete treatment course. Pt Condition on Discharge: Good Discharge Disposition: Discharge Home Discharge Time: > 30 minutes Discharge Instructions DIET: Follow Instructions for: Diabetic Diet Activities you can perform: Regular-No Restrictions Follow up Referrals: PCP Follow-up - 1 Week New Medications: Amoxicillin-Clavulanate (Augmentin) 875-125 Mg Tab 1 TAB PO BID for Infection for 10 Days, #20 TAB 0 Refills Hydrochlorothiazide (Hydrochlorothiazide) 25 Mg Tab 25 MG PO DAILY for water pill, #30 TAB 0 Refills Sulfamethoxazole-Trimethoprim (Bactrim DS) 800-160 Mg Tab 1 TAB PO BID for Infection, #20 TAB 0 Refills Continued Medications: Glimepiride (Glimepiride) 1 Mg Tab 1 MG PO DAILYAC for Blood Sugar Management, #30 TAB 0 Refills Take with breakfast or first main meal Metformin ER (Metformin ER) 1,000 Mg Trent 1000 MG PO BID for Blood Sugar Management, #30 TAB 0 Refills With evening meal Discontinued Medications: Valsartan-Hydrochlorothiazide (Valsartan-Hydrochlorothiazide) 160-25 Mg Tab 1 TAB PO DAILY for Blood Pressure Management, #30 TAB 0 Refills Remy Huff MD Jul 22, 2017 09:04
[2017-07-22] MEDS: GLIMEPIRIDE 1 MG TAB PO SCH (09:44)
[2017-07-22] MEDS: DOCUSATE SODIUM 50 MG/SENNA 8.6 MG TAB PO SCH (09:45)
[2017-07-22] MEDS: SODIUM CHLORIDE 0.9% FLUSH 10 ML FLUSH IV FLUSH SCH (09:45)
[2017-07-22] MEDS: HEPARIN SODIUM - SQ 10,000 UNITS/ML VIAL SQ SCH (09:45)
[2017-07-22 17:01] LABS: HEMOGLOBIN A1C 7.3 % (4.3-6.0)
[2017-07-22] MEDS ORDERED: PHARMACY ORDERED LAB ONE (21:45)
== END 2017-07-22 10:32 | disposition home or self-care (01) | DRG 872 ==
LOC: NEPC 19:34 → NEDA 21:56 → NEPFCDU 23:18
PROVIDERS: ADMIT Internal Medicine; ATTEND Internal Medicine
DX: A41.9 Sepsis, unspecified organism (principal); E11.65 Type 2 diabetes mellitus with hyperglycemia; L03.115 Cellulitis of right lower limb; Z68.41 Body mass index [BMI] 40.0-44.9, adult; E66.01 Morbid (severe) obesity due to excess calories; I10 Essential (primary) hypertension; M19.90 Unspecified osteoarthritis, unspecified site; G47.30 Sleep apnea, unspecified; N28.9 Disorder of kidney and ureter, unspecified; I87.8 Other specified disorders of veins; E78.5 Hyperlipidemia, unspecified; Z86.73 Personal history of transient ischemic attack (TIA), and cerebral infarction without residual deficits; Z79.84 Long term (current) use of oral hypoglycemic drugs
CPT/HCPCS: 71045; 80053; 80069; 81001; 82948; 83036; 83605; 83735; 83880; 84443; 85025; 85610; 87040; 93971; 96365; J0692; J0696; J1644; J1815; J1940; J2543; J3370; J7030; J7040; J7050